=== PATIENT | female | born 1980 | race Caucasian/White ===

== ENCOUNTER 2016-12-24 21:28 | Emergency (ER) | payer OTHER ==
[~2016-12-24] VITALS: Ht 167.6 cm; Wt 81.0 kg
[2016-12-24 21:37] VITALS: Ht 167.6 cm; Wt 81.0 kg
[2016-12-24] MEDS ORDERED: ONDANSETRON (ODT) 4 MG TAB ODT STA (22:19)
[2016-12-24] MEDS ORDERED: HYDROCODONE/APAP (5/325) TAB PO ONE (22:30)
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
[2016-12-24] MEDS ORDERED: ONDA4TAB14 PO (23:58)
[2016-12-24] MEDS ORDERED: HYDR-906 PO (23:58)
[2016-12-24] MEDS ORDERED: ACET500C5 PO (23:58)
== END 2016-12-25 00:20 | disposition home or self-care (01) ==
LOC: FTE 21:28
DX: S16.1XXA Strain of muscle, fascia and tendon at neck level, initial encounter (principal); S06.0X0A Concussion without loss of consciousness, initial encounter; S39.012A Strain of muscle, fascia and tendon of lower back, initial encounter; V49.40XA Driver injured in collision with unspecified motor vehicles in traffic accident, initial encounter
CPT/HCPCS: 70450; 72125; Z7502; Z7610

== ENCOUNTER 2017-10-15 22:15 | Emergency (ER) | END 2017-10-16 01:33 | disposition home or self-care (01) ==

== ENCOUNTER 2017-12-29 11:26 | Emergency (ER) | END 2017-12-29 13:58 | disposition home or self-care (01) ==